=== PATIENT | female | born 1995 | race Caucasian/White ===

== ENCOUNTER 2021-09-18 07:00 | Inpatient (IN) | payer BC ==
[2021-09-18] MEDS ORDERED: Sodium Chloride 0.9% 10 ML Syringe FLUSH PRN (08:02)
[2021-09-18] MEDS ORDERED: Lactated Ringers 1,000 ML IV ONE (08:02)
[2021-09-18] MEDS ORDERED: ePHEDrine 50 MG/ML SDV IVPUSH PRN (08:02)
--- NOTE | 2021-09-18 08:13 | PCM.LDHP ---
L&D History of Present Illness - General Date of Service: 09/18/21 (labor) Admit Problem/Dx: Patient Status Order with Admit Dx/Problem 09/18/21 08:03 Patient Status [ADT] Routine Admission Diagnosis/Problem Admission Diagnosis/Problem Labor established Source of Information: Patient History Limitations: Reports: No Limitations - History of Present Illness Introduction:: Candy is a at 40 2/7 weeks. Started teresa at 0200. Contractions became stronger around 0500. Most of the discomfort is in her back. Doing well Reactive strip, contractions 2-5 minutes apart. CE /-2 bulging bag Labs: GBS neg ABO Bpos positive Anti Gabbi HIv neg Rubella immune Covid pending, is vaccinated Timing/Duration: Reports: minutes: (2-5) Location, : Reports: Lower back Severity: Moderate Improves with: Reports: Movement Worsens with: Reports: None - Related Data Allergies/Adverse Reactions: Allergies Allergy/AdvReac Type Severity Reaction Status Date / Time Sulfa (Sulfonamide Allergy Rash Verified 09/18/21 07:23 Antibiotics) Home Medications: Home Meds Magnesium 400 mg PO DAILY 09/18/21 [History] Pnv No.95/Ferrous Fum/Folic AC [ Caplet] 1 tab PO DAILY 09/18/21 [History] Past Medical History [facility] History: Reports: : 2 Para: 0 LMP (Approximate): (BARRETT 09/16/21) H&P Review of Systems - Review of Systems: Review Of Systems: See Below General: Reports: No Symptoms HEENT: Reports: No Symptoms Pulmonary: Reports: No Symptoms Cardiovascular: Reports: No Symptoms Gastrointestinal: Reports: No Symptoms Genitourinary: Reports: No Symptoms Musculoskeletal: Reports: No Symptoms Skin: Reports: No Symptoms Psychiatric: Reports: No Symptoms Neurological: Reports: No Symptoms Hematologic/Lymphatic: Reports: No Symptoms Immunologic: Reports: No Symptoms L&D Exam - Exam Exam: See Below - OB Specific Contraction Intensity: Strong Movement: Active Heart Tones: Present Heart Tones per Min: 135 Heart Rate (FHR) Variability: Moderate (6-25 bpm) Presentation: Vertex Estimated Weight: 7 pounds - Donahue Score Donahue Score Cervix Position: Midposition Donahue Score Consistency: Soft Donahue Score Effacement: 51-70% Donahue Score Dilation: 3-4 cm Donahue Score Infant's Station: -2 Donahue Score Total: 8 - Exam General: Alert, Oriented HEENT: PERRLA, Mucosa Moist & [place], Pupils Equal Neck: Supple Lungs: Normal Respiratory Effort Cardiovascular: Regular Rate GI/Abdominal Exam: Soft Genitourinary: Cervical dilitation, Enlarged uterus, Other (bloody show) Back Exam: Normal Inspection, Full Range of Motion Extremities: Normal Inspection, No Pedal Edema Skin: Warm, Dry, Intact Neurological: Cranial Nerves Intact Psychiatric: Alert, Normal Affect, Normal Mood - Patient Data Lab Results Last 24 hrs: Laboratory Results - last 24 hr 09/18/21 Range/Units 07:16 Urine Color Yellow (YELLOW) Urine Appearance Slightly cloudy A (CLEAR) Urine pH 7.5 (5.0-8.0) Ur Specific [place] 1.020 (1.008-1.030) Urine Protein Negative (NEGATIVE) mg/dL Urine Glucose (UA) Negative (NEGATIVE) mg/dL Urine Ketones Negative (NEGATIVE) mg/dL Urine Occult Blood Moderate H (NEGATIVE) Urine Nitrite Negative (NEGATIVE) Urine Bilirubin Negative (NEGATIVE) Urine Urobilinogen 0.2 (0.2-1.0) EU/dL Ur Leukocyte Esterase Small H (NEGATIVE) Urine RBC 10-20 H (0-5) Urine WBC 5-10 H (0-5) Ur Epithelial Cells Moderate Amorphous Sediment Not seen Urine Bacteria Moderate Urine Mucus Not seen - Problem List (1) Active labor at term SNOMED Code(s): 89047276 ICD Code: [id number] - Status: Acute Current Visit: Yes Problem List Initiated/Reviewed/Updated: Yes Orders Last 24hrs: Active Orders 24 hr Category Date Time Status Patient Status [ADT] Routine ADT 09/18/21 08:03 Ordered Antiembolic Devices [RC] .Routine Care 09/18/21 08:05 Ordered Communication Order [RC] ASDIRECTED Care 09/18/21 08:03 Ordered Communication Order [RC] ASDIRECTED Care 09/18/21 08:03 Ordered Heart Tones [RC] PER UNIT ROUTINE Care 09/18/21 08:03 Ordered Non Stress Test [RC] Click to Edit Care 09/18/21 08:03 Ordered Insert Urinary Catheter [OM.PC] ASDIRECTED Care 09/18/21 08:15 Ordered Local Anesthetic Infusion Pump [RC] ASDIRECTED Care 09/18/21 08:03 Ordered Notify Provider Vital Signs [RC] PRN Care 09/18/21 08:02 Ordered Notify Provider [RC] PRN Care 09/18/21 08:03 Ordered OB Check [OM.PC] Click to Edit Care 09/18/21 07:08 Ordered PCEA Epidural [RC] ASDIRECTED Care 09/18/21 08:03 Ordered PCEA Epidural [RC] ASDIRECTED Care 09/18/21 08:04 Ordered Urinary Catheter Assessment [RC] ASDIRECTED Care 09/18/21 08:04 Ordered VTE/DVT Education [RC] Click to Edit Care 09/18/21 08:05 Ordered Vital Signs [RC] PER UNIT ROUTINE Care 09/18/21 08:03 Ordered CBC WITH AUTO DIFF [HEME] Routine Lab 09/18/21 08:00 Ordered COVID-19/FLU A+B/RSV [MOLEC] Stat Lab 09/18/21 08:06 Ordered Lactated Ringers [Ringers, Lactated] 1,000 ml Med 09/18/21 08:02 Ordered IV .BOLUS Oxytocin/Normal Saline [Pitocin in NS 20 Units/1,000 ML Med 09/18/21 08:06 Ordered ] 20 unit in 1,000 ml IV ONETIME Sodium Chloride 0.9% [Saline Flush] Med 09/18/21 08:02 Ordered 10 ml FLUSH ASDIRECTED PRN ePHEDrine [ePHEDrine sulfate] Med 09/18/21 08:02 Ordered 10 mg IVPUSH ASDIRECTED PRN DVT/VTE Prophylaxis Reflex [OM.PC] Routine Oth 09/18/21 08:02 Ordered Epidural Catheter Management [OM.PC] Urgent Oth 09/18/21 08:03 Ordered Saline Lock Insert [OM.PC] Routine Oth 09/18/21 08:03 Ordered Resuscitation Status Routine Resus Stat 09/18/21 08:02 Ordered Assessment/Plan Comment:: 26 year old 40 2/7 active labor at labor Plan: anticipate vaginal delivery later today epidural for pain management
[2021-09-18 08:58] LABS: CORONAVIRUS COVID-19 NAA NEGATIVE (NEGATIVE)
[2021-09-18] MEDS ORDERED: Lactated Ringers 1,000 ML IV SCH (09:00)
--- NOTE | 2021-09-18 09:45 | PCM.PNLD ---
Labor Progress Note - VS & Meds Active Medications: Current Medications Ephedrine Sulfate (Ephedrine 50 Mg/Ml Sdv) 10 mg IVPUSH ASDIRECTED PRN PRN Reason: Hypotension Lactated Ringer's (Ringers, Lactated) 1,000 mls @ 125 mls/hr IV ASDIRECTED SCOTTIE Sodium Chloride (Sodium Chloride 0.9% 10 Ml Syringe) 10 ml FLUSH ASDIRECTED PRN PRN Reason: Keep Vein Open Discontinued Medications Lactated Ringer's (Ringers, Lactated) 1,000 mls @ 999 mls/hr IV .BOLUS ONE Stop: 09/18/21 09:02 Last Admin: 09/18/21 08:05 Dose: 999 mls/hr Documented by: Oxytocin/Sodium Chloride (Pitocin In Ns 20 Units/1,000 Ml) 20 unit in 1,000 mls @ 999 mls/hr IV ONETIME ONE; Protocol Stop: 09/18/21 09:06 - Uterine Contractions Contraction Intensity: Strong - Monitoring Heart Rate (FHR) Variability: Moderate (6-25 bpm) - Labor Progress (Free Text) Labor Progress: Met the patient and discussed her OB history. heart tracing is reassuring. Contractions every 3-5 minutes. Waiting for epidural.
[2021-09-18] MEDS ORDERED: Ropivacaine 100 ML ONE (10:07)
--- NOTE | 2021-09-18 11:12 | ANES ---
DATE OF SERVICE: 09/18/2021 INDICATIONS: Candy is a 26-year-old female, patient of Breanne Camacho in our Obstetric Unit. I was requested to assess the patient for labor epidural placement. Upon arrival, I find a 26-year-old female, patient healthy. I reviewed with her lab work as well as medical history, found no contraindication to epidural placement. Discussed with her the procedure as well as expectation. She was agreeable to proceed and consent was received. TECHNIQUE: I placed her seated at the edge of the bed. Betadine prep x3 to lumbar region. Sterile drape was placed, 1% lidocaine skin wheal as well as deep at the L4-L5 region. A 17- gauge Tuohy was placed to loss of resistance. Negative CSF, negative heme, negative paresthesia. I placed a silicone catheter to 13 cm. Needle was removed. Drape was removed. Her back was washed and Tegaderm over the catheter site. A test dose of 3 mL of 1.5% lidocaine and 1:200,000 epinephrine. She tolerated that procedure quite well. After being placed in supine position, I began infusion of 12 mL an hour of 0.2% ropivacaine. Vitals remained within normal region. Please refer to nurse's notes for vital signs and neuro status. I reported off to the staff. Again, she tolerated the procedure quite well. Gerry Baldwin CRNA /[id number]
[2021-09-18] MEDS ORDERED: Misoprostol 200 MCG Tab ONE (12:32)
[2021-09-18] MEDS ORDERED: Methylergonovine 0.2 MG/1 ML Amp ONE (12:33)
[2021-09-18] MEDS ORDERED: Carboprost Tromethamine 250 MCG/1 ML Amp ONE (12:33)
[2021-09-18] MEDS ORDERED: Misoprostol 200 MCG Tab RECTAL ONE (12:35)
--- NOTE | 2021-09-18 12:53 | PCM.DEL ---
L & D Note - General Info Date of Service: 09/18/21 Mother's Due Date: 09/16/21 - Delivery Note Labor: Spontaneous Delivery Outcome: Livebirth Infant Delivery Method: Spontaneous Vaginal Delivery-Single Delivery Mode: Spontaneous Presentation: Left Occiput Anterior (GABRIEL) Nuchal Cord: None Anesthesia Type: Epidural Amniotic Fluid Description: Clear Laceration: 2nd Degree, Vaginal Suture type: Chromic Suture size: 3-0 : Bulb Syringe, Stimulated Provider: Dr. Torres Delivery Comments (Free Text/Narrative):: Delivery Note -- I was called to the room for: "ready to start pushing." Patient was placed in the stirrups and pushed about 30 minutes. Head, shoulders, body delivered easily. Loud cry, moved all extremities well after delivery. APGARs 8/9. Cord clamp was delayed about 1 minute. No episiotomy. 2nd degree midline lacerations at 3:00 and 5:00 positions; repaired with chromic suture. Cytotec 800mcg placed MI after delivery. Uterus firm, good hemostasis afterward. EBL -- 500cc. Routine care. - General Info Date of Service: 09/18/21 - Patient Data Vitals - Most Recent: Last Vital Signs Temp Pulse 92 09/18/21 12:12 Resp BP 119/63 09/18/21 12:12 Pulse Ox 98 09/18/21 10:54 Weight - Most Recent: 190 lb I&O - Last 24 Hours: Intake & Output 09/17/21 09/18/21 09/18/21 22:59 06:59 14:59 Intake Total 1000 Output Total 200 Balance 800 Lab Results Last 24 Hours: Laboratory Results - last 24 hr 09/18/21 09/18/21 09/18/21 Range/Units 07:16 08:06 08:20 WBC 15.7 H (4.5-11.0) K/uL RBC 3.94 (3.30-5.50) M/uL Hgb 12.6 (12.0-15.0) g/dL Hct 36.8 (36.0-48.0) % MCV 93 (80-98) fL MCH 32 H (27-31) pg MCHC 34 (32-36) % Plt Count 137 L (150-400) K/uL Neut % (Auto) 85.2 H (36-66) % Lymph % (Auto) 7.3 L (24-44) % [place] % (Auto) 6.6 H (2-6) % Eos % (Auto) 0.8 L (2-4) % Baso % (Auto) 0.1 (0-1) % Urine Color Yellow (YELLOW) Urine Appearance Slightly cloudy A (CLEAR) Urine pH 7.5 (5.0-8.0) Ur Specific [place] 1.020 (1.008-1.030) Urine Protein Negative (NEGATIVE) mg/dL Urine Glucose (UA) Negative (NEGATIVE) mg/dL Urine Ketones Negative (NEGATIVE) mg/dL Urine Occult Blood Moderate H (NEGATIVE) Urine Nitrite Negative (NEGATIVE) Urine Bilirubin Negative (NEGATIVE) Urine Urobilinogen 0.2 (0.2-1.0) EU/dL Ur Leukocyte Esterase Small H (NEGATIVE) Urine RBC 10-20 H (0-5) Urine WBC 5-10 H (0-5) Ur Epithelial Cells Moderate Amorphous Sediment Not seen Urine Bacteria Moderate Urine Mucus Not seen Influenza Type A RNA Negative (NEGATIVE) RSV RNA (INAAT) Negative (NEGATIVE) Influenza Type B RNA Negative (NEGATIVE) SARS-CoV-2 RNA (MCK[place]LEY) Negative (NEGATIVE) Med Orders - Current: Current Medications Ephedrine Sulfate (Ephedrine 50 Mg/Ml Sdv) 10 mg IVPUSH ASDIRECTED PRN PRN Reason: Hypotension Lactated Ringer's (Ringers, Lactated) 1,000 mls @ 125 mls/hr IV ASDIRECTED SCOTTIE Sodium Chloride (Sodium Chloride 0.9% 10 Ml Syringe) 10 ml FLUSH ASDIRECTED PRN PRN Reason: Keep Vein Open Discontinued Medications Carboprost Tromethamine (Carboprost Tromethamine 250 Mcg/1 Ml Amp) Confirm Administered Dose 250 mcg .ROUTE .STK-MED ONE Stop: 09/18/21 12:34 Lactated Ringer's (Ringers, Lactated) 1,000 mls @ 999 mls/hr IV .BOLUS ONE Stop: 09/18/21 09:02 Last Admin: 09/18/21 08:05 Dose: 999 mls/hr Documented by: Oxytocin/Sodium Chloride (Pitocin In Ns 20 Units/1,000 Ml) 20 unit in 1,000 mls @ 999 mls/hr IV ONETIME ONE; Protocol Stop: 09/18/21 09:06 Ropivacaine (Naropin 0.2%) Confirm Administered Dose 100 mls @ as directed .ROUTE .STK-MED ONE Stop: 09/18/21 10:08 Methylergonovine Maleate (Methylergonovine 0.2 Mg/1 Ml Amp) Confirm Administered Dose 0.2 mg .ROUTE .STK-MED ONE Stop: 09/18/21 12:34 Misoprostol (Misoprostol 200 Mcg Tab) Confirm Administered Dose 800 mcg .ROUTE .STK-MED ONE Stop: 09/18/21 12:33 - Exam Urinary Catheter Total Time: 0Days 1Hours - Problem List Review Problem List Initiated/Reviewed/Updated: Yes - My Orders Last 24 Hours: My Active Orders 09/19/21 05:11 CBC W/O DIFF,HEMOGRAM [HEME] Routine - Plan Plan:: 26 year old 40 11/04 active labor at labor Plan: anticipate vaginal delivery later today epidural for pain management
[2021-09-18] MEDS ORDERED: Benzocaine 20% Top Spray 56 GM Bottle TOP PRN (12:58)
[2021-09-18] MEDS ORDERED: Zolpidem 5 MG Tab PO PRN (12:58)
[2021-09-18] MEDS ORDERED: Docusate Sodium 100 MG Cap PO PRN (12:58)
[2021-09-18] MEDS ORDERED: Acetaminophen/HYDROcodone 325-5 MG Tab PO PRN (12:58)
[2021-09-18] MEDS ORDERED: Misoprostol 200 MCG Tab RECTAL PRN (13:13)
[2021-09-18] MEDS: Acetaminophen 325 MG Tab PO PRN ×3 (15:02→23:19)
[2021-09-18] MEDS: Ibuprofen 600 MG Tab PO PRN ×2 (17:06→21:04)
[2021-09-18] MEDS ORDERED: Lanolin 100% Cream 40 GM Tube TOP PRN (17:53)
[2021-09-19] MEDS: Ibuprofen 600 MG Tab PO PRN ×2 (01:07→05:25)
[2021-09-19] MEDS: Acetaminophen 325 MG Tab PO PRN ×3 (03:19→13:41)
--- NOTE | 2021-09-19 13:38 | PCM.DCSUM1 ---
Discharge Summary - Discharge Data Discharge Date: 09/19/21 Discharge Disposition: Home, Self-Care 01 Condition: Good - Referral to Home Health Primary Care Physician: Breanne Camacho CNM - Patient Summary/Data Hospital Course: Hospital Course -- The patient is a 26 year old G2, now P1, and Ab1 who came to the hospital at 40 weeks gestation. She has been a clinic patient of Breanne Camacho CNM. No unusual complications during this . Presenting complaint was: contractions. The CTX started early in the morning, on 09/18/2021. No heavy vaginal bleeding. No ruptured membranes. No subjective fever or chills. The baby was moving well. Records show she tested negative for GBS in the clinic. Covid 19 swab was negative on admission. She was admitted for delivery. Physical exam was unremarkable. Her past medical history is significant for: allergic to sulfa. Otherwise unremarkable. Physical Exam: Well developed female, No acute distress Afebrile Vital signs stable HEENT -- NCAT Chest -- Clear CV -- Rate & rhythm regular, S1 S2 heard Abdomen -- Gravid, non-tender. EFW 7lbs Cervix -- 4-5 cm Membranes intact Neuro -- Non-focal Extrem -- No cyanosis/clubbing/edema heart tracing was 130s, moderate variability, Category 1 tracing CTX noted Q 3-5 minutes Lab -- Essentially normal. Well documented in the chart. She is Rh+ Hospital course: She was admitted for delivery. Epidural placed a short time later. Her labor progressed in a normal manner, without Pitocin augmentation. At about noon she was completely dilated. Membranes ruptured spontaneously. She was placed in the stirrups and encouraged to push. Second stage lasted about 30 minutes. Head, shoulders, body delivered easily. APGARs were 8/9. EBL was about 500cc. 2nd degree vaginal wall lacerations were repaired with chromic suture. No significant complications. Her course was also uncomplicated. On day #1 she mentioned only minimal vaginal bleeding. She was voiding easily, tolerating PO intake, and walking without dizziness. Asked to be discharged to home. Hgb was 10.8 Based on these findings, I felt we could safely discharge her. Regular diet. Pelvic rest. Keep next clinic appointment with Breanne. She can take Tylenol and ibuprofen OTC as needed for pain. Continue vitamins. Call or return for any worsening symptoms. - Patient Instructions Diet: Regular Diet as Tolerated Activity: As Tolerated Activity, Other: pelvic rest Showering/Bathing: May Shower Notify Provider of: Fever, Increased Pain, Swelling and Redness, Drainage, Nausea and/or Vomiting - Discharge Plan *PRESCRIPTION DRUG MONITORING PROGRAM REVIEWED*: No *COPY OF PRESCRIPTION DRUG MONITORING REPORT IN PATIENT DARIUSZ: Not Applicable Home Medications: Home Meds Magnesium 400 mg PO DAILY 09/18/21 [History] Pnv No.95/Ferrous Fum/Folic AC [ Caplet] 1 tab PO DAILY 09/18/21 [History] Patient Handouts: and Breast Care, [id number] - Discharge Summary/Plan Comment DC Time >30 min.: No Total # of Minutes for Discharge Time: 15 minutes Discharge Summary/Plan Comment: Plan is for the patient to keep her next appointment. Scheduled for 7-10 days from now, in the clinic. Call or return for any worsening symptoms. - Patient Data Vitals - Most Recent: Last Vital Signs Temp 97.8 F 09/19/21 07:17 Pulse 70 09/19/21 07:17 Resp 16 09/19/21 07:17 BP 96/45 L 09/19/21 07:17 Pulse Ox 98 09/19/21 07:17 Weight - Most Recent: 190 lb I&O - Last 24 hours: Intake & Output 09/18/21 09/19/21 09/19/21 22:59 06:59 14:59 Intake Total 2499 266 0439 Balance 2473 232 5429 Lab Results - Last 24 hrs: Laboratory Results - last 24 hr 09/19/21 Range/Units 06:08 WBC 15.2 H (4.5-11.0) K/uL RBC 3.35 (3.30-5.50) M/uL Hgb 10.8 L (12.0-15.0) g/dL Hct 32.3 L (36.0-48.0) % MCV 96 (80-98) fL MCH 32 H (27-31) pg MCHC 33 (32-36) % Plt Count 107 L (150-400) K/uL Med Orders - Current: Current Medications Acetaminophen (Acetaminophen 325 Mg Tab) 650 mg PO Q4H PRN PRN Reason: mild pain or fever Last Admin: 09/19/21 07:38 Dose: 650 mg Documented by: Hydrocodone Bitart/Acetaminophen (Acetaminophen/Hydrocodone 325-5 Mg Tab) 2 tab PO Q4H PRN PRN Reason: Pain (moderate 4-6) Benzocaine (Benzocaine 20% Top [place] 56 Gm Bottle) 0 gm TOP Q4H PRN PRN Reason: Perineal Comfort Measure Docusate Sodium (Docusate Sodium 100 Mg Cap) 100 mg PO BID PRN PRN Reason: Constipation Last Admin: 09/19/21 07:38 Dose: 100 mg Documented by: Emollient Ointment (Lanolin 100% Cream 40 Gm Tube) 40 gm TOP ASDIRECTED PRN PRN Reason: Pain Last Admin: 09/18/21 18:16 Dose: 1 applic Documented by: Ephedrine Sulfate (Ephedrine 50 Mg/Ml Sdv) 10 mg IVPUSH ASDIRECTED PRN PRN Reason: Hypotension Lactated Ringer's (Ringers, Lactated) 1,000 mls @ 125 mls/hr IV ASDIRECTED SCOTTIE Last Admin: 09/18/21 09:06 Dose: 125 mls/hr Documented by: Ibuprofen (Ibuprofen 600 Mg Tab) 600 mg PO Q4H PRN PRN Reason: mild pain or fever Last Admin: 09/19/21 05:25 Dose: 600 mg Documented by: Sodium Chloride (Sodium Chloride 0.9% 10 Ml Syringe) 10 ml FLUSH ASDIRECTED PRN PRN Reason: Keep Vein Open Zolpidem Tartrate (Zolpidem 5 Mg Tab) 5 mg PO BEDTIME PRN PRN Reason: Insomnia Discontinued Medications Carboprost Tromethamine (Carboprost Tromethamine 250 Mcg/1 Ml Amp) Confirm Administered Dose 250 mcg .ROUTE .STK-MED ONE Stop: 09/18/21 12:34 Last Admin: 09/18/21 14:46 Dose: Not Given Documented by: Lactated Ringer's (Ringers, Lactated) 1,000 mls @ 999 mls/hr IV .BOLUS ONE Stop: 09/18/21 09:02 Last Admin: 09/18/21 08:05 Dose: 999 mls/hr Documented by: Oxytocin/Sodium Chloride (Pitocin In Ns 20 Units/1,000 Ml) 20 unit in 1,000 mls @ 999 mls/hr IV ONETIME ONE; Protocol Stop: 09/18/21 09:06 Last Admin: 09/18/21 12:35 Dose: 999 mls/hr, 999 mls/hr Documented by: Ropivacaine (Naropin 0.2%) Confirm Administered Dose 100 mls @ as directed .ROUTE .STK-MED ONE Stop: 09/18/21 10:08 Methylergonovine Maleate (Methylergonovine 0.2 Mg/1 Ml Amp) Confirm Administered Dose 0.2 mg .ROUTE .STK-MED ONE Stop: 09/18/21 12:34 Last Admin: 09/18/21 14:46 Dose: Not Given Documented by: Misoprostol (Misoprostol 200 Mcg Tab) Confirm Administered Dose 800 mcg .ROUTE .STK-MED ONE Stop: 09/18/21 12:33 Last Admin: 09/18/21 14:46 Dose: Not Given Documented by: Misoprostol (Misoprostol 200 Mcg Tab) 800 mcg RECTAL ONETIME PRN PRN Reason: Excessive vaginal bleeding Last Admin: 09/18/21 12:35 Dose: 800 mcg Documented by:
== END 2021-09-19 15:24 | disposition home or self-care (01) | DRG 560 ==
LOC: JP.OBCHECK 07:00 → JP.OB 07:03 → JP.OBCHECK 07:55 → JP.OB 07:57 → OBSVTOIN 12:25 → JP.MS 16:02
PROVIDERS: ADMIT Nurse Practitioner Family; ATTEND Nurse Practitioner Family
PROC: 10E0XZZ Delivery of Products of Conception, External Approach (ICD-10-PCS; principal; 2021-09-18)
PROC: 0KQM0ZZ Repair Perineum Muscle, Open Approach (ICD-10-PCS; 2021-09-18)
PROC: 3E0R3BZ Introduction of Anesthetic Agent into Spinal Canal, Percutaneous Approach (ICD-10-PCS; 2021-09-18)
PROC: 00HU33Z Insertion of Infusion Device into Spinal Canal, Percutaneous Approach (ICD-10-PCS; 2021-09-18)
DX: O48.0 Post-term pregnancy (principal); Z37.0 Single live birth; O70.1 Second degree perineal laceration during delivery; Z20.822 Contact with and (suspected) exposure to COVID-19; Z3A.40 40 weeks gestation of pregnancy; Z88.2 Allergy status to sulfonamides
CPT/HCPCS: 0241U; 36415; 51702; 81001; 85025; 85027; 99211; A9270-GY; J2590; J2795; J7120